=== PATIENT | female | born 1975 | race Caucasian/White ===

== ENCOUNTER → 2018-03-31 12:59 | Day surgery (SDC) | payer BC ==
[~2018-03-31 12:59] MED LIST: Buffered Lidocaine 0.9% SYRIN* 5 ML/SYR SYRINGE INTRADERM ONE; Bupivacaine 0.5%* 50 ML VIAL ONE; Clindamycin 600 MG IVPREMIX(* 600 MG/50 ML SDV IV ONE; Dexamethasone IV* 4 MG/ML 1 ML (4 MG) ONE; Lactated Ringers 1000 ML Bag* 1,000 ML IV SCH; Lidocaine 2% PF * 5 ML VIAL ONE; Midazolam* 1 MG/ML 2 ML VIAL (2 MG) ONE; Ondansetron INJ* 2 MG/ML VIAL ONE; Propofol* 10 MG/ML 20 ML BTL ONE; fentaNYL* 50 MCG/ML 2 ML VIAL (100 MCG VIAL) ONE
--- NOTE | 2018-03-31 19:25 | OP ---
Operative Report - Blank - Operative Report Date of Operation: 03/31/18 Note: PATIENT: Rosario Fulton DATE OF : 1975 DATE OF SURGERY: 03/31/2018 SURGEON: Jimmy Grye MD ELECTRICAL AUTOMATION ENGINEER: INDIGO Lance, whos assistance was necessary for positioning, retraction, help with instrumentation, and closure. ANESTHESIOLOGIST: Jenniffer Rodriguez MD PREOPERATIVE DIAGNOSIS: Left navicular osteochondral impaction fracture POSTOPERATIVE DIAGNOSIS: Left navicular osteochondral impaction fracture OPERATION: Left talonavicular joint arthrotomy and open treatment of navicular osteochondral impaction fracture with debridement and microfracture. ANESTHESIA: LMA IMPLANTS: none TOURNIQUET TIME: Less than 1 hour with an ankle Esmarch tourniquet SPECIMENS: none ESTIMATED BLOOD LOSS: minimal COMPLICATIONS: none STATUS: Stable from the operating room to the recovery room and then home INDICATIONS FOR PROCEDURE: Rosario has had right foot pain from an injury, refractory to non-op treatment thus far. Both operative and non-operative treatment alternatives were reviewed. Further, the nature and risks of surgery were reviewed in careful detail. Our discussions regarding the risks of surgery included, but were not limited to, infection, wound problems, nerve injury, neuroma, RSD, persistent symptoms, blood clot, need for further surgery, failure of the surgery, and even the remote chance of catastrophic complication, including loss of limb. DESCRIPTION OF PROCEDURE: The patient was seen in the preoperative holding unit and informed written consent was obtained. The appropriate extremity was marked. The patient was then brought to the operating room and carefully positioned on the operating room table. Anesthesia was induced. All bony prominences were padded with great care. A well-padded thigh tourniquet was placed. A chlorhexidine based pre- scrub was performed followed by a chloraprep prep and drape in standard sterile fashion. A surgical safety pause was then conducted in which we confirmed the appropriate patient, extremity, planned procedure, availability of equipment, indication and administration of prophylactic antibiotics, and DVT prophylaxis in the form of a compression boot on the non-surgical extremity. I began with an exsanguination of the limb and placement of an ankle Esmarch tourniquet. I then made a dorsal foot incision and dissected down along the tibialis anterior tendon to the talonavicular joint. Subperiosteal flaps were raised medially and laterally. A Hintermann retractor was used to expose the talonavicular joint. The impaction fracture defect was readily appreciated on the navicular. I used micro-curettes to curette out any remaining cartilage and underlying cystic bone. I then used a 0.045 K wire to perform a microfracture of the lesion. The joint and wound was then copiously irrigated and closed with 3-0 Monocryl and 3-0 nylon. A sterile dressing was then applied followed by a splint with the ankle in a neutral position. The patient was then awakened from anesthesia and transferred to the recovery room in stable condition. There were no complications. All needle and sponge counts were correct at the end of the case. ATTESTATION: I attest I was present and scrubbed and performed the critical portions of the procedure myself. POSTOPERATIVE PLAN: She will remain nonweightbearing for 2 weeks, follow up in 2 weeks for suture removal and transition to a walking boot.
[2018-03-31 21:00] VITALS: BP 116/74
== END | disposition home or self-care (01) ==
LOC: OR 12:59
PROVIDERS: ATTEND Orthopaedic Surgery
DX: S92.255A Nondisplaced fracture of navicular [scaphoid] of left foot, initial encounter for closed fracture (principal); X50.0XXA Overexertion from strenuous movement or load, initial encounter; Y92.9 Unspecified place or not applicable; E03.9 Hypothyroidism, unspecified; F32.9 Major depressive disorder, single episode, unspecified
CPT/HCPCS: 81025; J1100; J2250; J2405; J2704; J3010